=== PATIENT | male | born 1950 ===

== ENCOUNTER 2020-01-15 04:59 | Day surgery (SDC) | payer OTHER ==
[2020-01-15] MEDS ORDERED: MIDAZOLAM HCL 2 MG/2ML VIAL ONE (06:53)
[2020-01-15] MEDS ORDERED: ANESTHESIA TRAY IN PYXIS 1 EA TRAY MC ONE (06:53)
[2020-01-15] MEDS ORDERED: FENTANYL PF 100MCG/2ML AMPUL ONE ×2 (06:54→08:38)
[2020-01-15] MEDS ORDERED: EPINEPHRINE (1:1000) 1 MG/ML AMPUL ONE (07:00)
[2020-01-15] MEDS ORDERED: methylPREDNISolone ACETATE 80 MG/ML VIAL ONE (07:55)
[2020-01-15] MEDS ORDERED: FLUMAZENIL 0.5 MG VIAL ONE (08:17)
== END 2020-01-15 09:51 | disposition home or self-care (01) ==
LOC: DS 04:59
PROVIDERS: ATTEND Specialist
DX: M75.42 Impingement syndrome of left shoulder (principal); G56.02 Carpal tunnel syndrome, left upper limb; E11.22 Type 2 diabetes mellitus with diabetic chronic kidney disease; I12.9 Hypertensive chronic kidney disease with stage 1 through stage 4 chronic kidney disease, or unspecified chronic kidney disease; N18.3 Chronic kidney disease, stage 3 (moderate); Z79.899 Other long term (current) drug therapy
CPT/HCPCS: 29824; 64721; 82962; 88304; 88311; 88312; A4217; A6402; J0171; J1040; J2250; J3010; J3490; J0330; J0690; J1100; J2405